=== PATIENT | male | born 1940 | race Caucasian/White ===

== ENCOUNTER 2019-08-08 14:35 | Inpatient (IN) ==
[2019-08-08] MEDS ORDERED: ONDANSETRON 4 MG/2 ML VIAL IV PRN (15:45)
[2019-08-08] MEDS ORDERED: ACETAMINOPHEN 325 MG TABLET PO PRN (15:45)
[2019-08-08] MEDS ORDERED: BENZONATATE 100 MG CAPSULE PO PRN (15:46)
[2019-08-08] MEDS ORDERED: methylPREDNISolone SOD SUC 40 MG/1 ML VIAL IV ONE (15:47)
[2019-08-08] MEDS ORDERED: ALBUTEROL/IPRATROPIUM 3 ML NEB RESP TX ONE (15:47)
[2019-08-08 16:46] LABS: Basophils % 0.2 % (0.0-0.8); Eosinophils % 0.1 % (0.00-10.9); Hematocrit 32.8 VOL% (42.0-52.0); Hemoglobin 10.6 GM/DL (14.0-18.0); Immature Granulocytes Absolute 0.37 #; Lymphocytes # 0.7 10*3/uL (1.4-4.0); Lymphocytes % 3.9 % (21.2-54.2); Mean Corpuscular HGB Conc 32.3 GM/DL (32-36); Mean Corpuscular Volume 94.5 FL (87-102); Monocytes % 5.1 % (1.7-12.7); Neutrophils % 88.7 % (38.7-73.9); Platelet Count 224 T/CUMM (130-400); Red Blood Count 3.47 MC/CUMM (3.8-5.5); Red Cell Distribution Width 14.1 % (9.3-17.3); White Blood Count 18.5 T/CUMM (4-12)
[2019-08-08 17:01] LABS: Calcium 8.7 MG/DL (8.5-10.1); Osmolality,Calculated 267.5 MOS/KG (273-304)
[2019-08-08 17:16] LABS: Troponin I < 0.015 NG/ML (0.00-0.045)
[2019-08-08] MEDS: cefTRIAXone 1,000 MG in SYRINGE 1 EACH IV SCH (17:20)
[2019-08-08 17:28] LABS: Band Neutrophils 2 % (0-10); Lymphocytes 5 % (20-55); Platelet Estimate Normal; Segmented Neutrophils 89 % (50-85); Total Cells Counted 100
[2019-08-08] MEDS: AZITHROMYCIN INJ 500 MG in SODIUM CHLORIDE 0.9% 250 ML IV SCH (17:29)
[2019-08-08 18:47] LABS: Troponin I < 0.015 NG/ML (0.00-0.045)
[2019-08-08] MEDS: ALBUTEROL/IPRATROPIUM 3 ML NEB RESP TX SCH (19:30)
[2019-08-08 19:35] LABS: Apearance,Urine CLEAR (Clear); Bacteria,Urine Many /HPF (Few); Bilirubin,Urine Negative (Negative); Blood, Urine Small mg/dL (Negative); Glucose,Urine (UA) Negative (Negative); Hyaline Casts,Urine 10 /LPF (0-3); Ketones,Urine Negative (Negative); Mucus,Urine Occasional /LPF (Occasional); Nitrite,Urine Negative (Negative); Protein,Urine Negative; RBC,Urine 4 /HPF (0-4); Squamous Epithelial Cell,Urine Occasional /HPF (0-10); Urine Color Yellow (Yellow); Urine Specific Gravity 1.014 (1.001-1.035); Urine Urobilinogen < 2.0 EU/DL (0.2-1.0); WBC,Urine 15 /HPF (0-6)
[2019-08-08] MEDS: carvediloL 6.25 MG TABLET PO SCH (20:40)
[2019-08-08 22:33] LABS: Troponin I < 0.015 NG/ML (0.00-0.045)
[2019-08-09] MEDS: ALBUTEROL/IPRATROPIUM 3 ML NEB RESP TX SCH ×7 (00:11→23:40)
[2019-08-09] MEDS: methylPREDNISolone SOD SUC 40 MG/1 ML VIAL IV SCH ×2 (05:29→16:41)
[2019-08-09 06:13] LABS: Basophils % 0.1 % (0.0-0.8); Hematocrit 31.9 VOL% (42.0-52.0); Hemoglobin 10.2 GM/DL (14.0-18.0); Immature Granulocytes % 1.3 %; Immature Granulocytes Absolute 0.17 #; Lymphocytes # 0.6 10*3/uL (1.4-4.0); Lymphocytes % 4.6 % (21.2-54.2); Mean Corpuscular Volume 93.3 FL (87-102); Mean Platelet Volume 10.7 FL (9.6-12.0); Monocytes % 5.1 % (1.7-12.7); Neutrophils % 88.9 % (38.7-73.9); Platelet Count 207 T/CUMM (130-400); Red Blood Count 3.42 MC/CUMM (3.8-5.5); Red Cell Distribution Width 13.9 % (9.3-17.3); White Blood Count 13.5 T/CUMM (4-12)
[2019-08-09 06:42] LABS: Calcium 8.8 MG/DL (8.5-10.1); Osmolality,Calculated 276.1 MOS/KG (273-304); Risk Ratio 4.38; Thyroid Stimulating Hormone 0.519 uIU/ml (0.358-3.74); VLDL CHOLESTEROL 17.6 MG/DL
[2019-08-09 06:53] LABS: Band Neutrophils 1 % (0-10); Lymphocytes 3 % (20-55); Platelet Estimate Normal; Polychromasia Slight; Segmented Neutrophils 95 % (50-85); Total Cells Counted 100
[2019-08-09] MEDS: DOCUSATE SODIUM 100 MG CAPSULE PO SCH ×2 (08:47→20:14)
[2019-08-09] MEDS: carvediloL 6.25 MG TABLET PO SCH ×2 (08:47→20:15)
[2019-08-09] MEDS: BUDESONIDE/FORMOTEROL 160-4.5 INHALER 6 GM INH SCH (08:47)
[2019-08-09] MEDS: PANTOPRAZOLE 40 MG TABLET PO SCH (08:47)
[2019-08-09] MEDS: SIMVASTATIN 10 MG TABLET PO SCH (08:47)
[2019-08-09] MEDS: EZETIMIBE 10 MG TABLET PO SCH (08:47)
[2019-08-09] MEDS: AZITHROMYCIN INJ 500 MG in SODIUM CHLORIDE 0.9% 250 ML IV SCH (16:40)
[2019-08-09] MEDS: cefTRIAXone 1,000 MG in SYRINGE 1 EACH IV SCH (16:41)
[2019-08-10] MEDS: ALBUTEROL/IPRATROPIUM 3 ML NEB RESP TX SCH ×6 (04:44→23:25)
[2019-08-10] MEDS: methylPREDNISolone SOD SUC 40 MG/1 ML VIAL IV SCH ×2 (04:53→23:35)
[2019-08-10 05:19] LABS: Basophils % 0.2 % (0.0-0.8); Eosinophils % 0.1 % (0.00-10.9); Hematocrit 31.8 VOL% (42.0-52.0); Hemoglobin 10.6 GM/DL (14.0-18.0); Immature Granulocytes % 2.9 %; Immature Granulocytes Absolute 0.56 #; Lymphocytes # 1.1 10*3/uL (1.4-4.0); Lymphocytes % 5.7 % (21.2-54.2); Mean Corpuscular HGB Conc 33.3 GM/DL (32-36); Mean Corpuscular Volume 91.4 FL (87-102); Neutrophils % 87.1 % (38.7-73.9); Platelet Count 259 T/CUMM (130-400); Red Blood Count 3.48 MC/CUMM (3.8-5.5); Red Cell Distribution Width 14.1 % (9.3-17.3); White Blood Count 19.2 T/CUMM (4-12)
[2019-08-10 05:44] LABS: Calcium 8.7 MG/DL (8.5-10.1); Osmolality,Calculated 283.8 MOS/KG (273-304)
[2019-08-10 05:56] LABS: Lymphocytes 3 % (20-55); Platelet Estimate Adequate; Segmented Neutrophils 95 % (50-85); Total Cells Counted 100
[2019-08-10] MEDS: DOCUSATE SODIUM 100 MG CAPSULE PO SCH ×2 (08:32→20:47)
[2019-08-10] MEDS: carvediloL 6.25 MG TABLET PO SCH ×2 (08:32→20:47)
[2019-08-10] MEDS: EZETIMIBE 10 MG TABLET PO SCH (08:32)
[2019-08-10] MEDS: SIMVASTATIN 10 MG TABLET PO SCH (08:33)
[2019-08-10] MEDS: PANTOPRAZOLE 40 MG TABLET PO SCH (08:33)
[2019-08-10] MEDS: BUDESONIDE/FORMOTEROL 160-4.5 INHALER 6 GM INH SCH (08:35)
[2019-08-10] MEDS: AZITHROMYCIN 250 MG TABLET PO SCH (08:40)
[2019-08-10] MEDS: cefTRIAXone 1,000 MG in SYRINGE 1 EACH IV SCH (17:08)
[2019-08-11] MEDS: ALBUTEROL/IPRATROPIUM 3 ML NEB RESP TX SCH ×2 (04:28→07:36)
[2019-08-11 04:47] LABS: Basophils # 0.1 10*3/uL (0.0-0.2); Basophils % 0.3 % (0.0-0.8); Hematocrit 33.6 VOL% (42.0-52.0); Hemoglobin 10.8 GM/DL (14.0-18.0); Immature Granulocytes % 3.1 %; Immature Granulocytes Absolute 0.47 #; Lymphocytes # 0.8 10*3/uL (1.4-4.0); Lymphocytes % 5.5 % (21.2-54.2); Mean Corpuscular HGB Conc 32.1 GM/DL (32-36); Mean Corpuscular Volume 92.6 FL (87-102); Mean Platelet Volume 10.6 FL (9.6-12.0); Monocytes % 2.6 % (1.7-12.7); Neutrophils % 88.5 % (38.7-73.9); Platelet Count 288 T/CUMM (130-400); Red Blood Count 3.63 MC/CUMM (3.8-5.5); Red Cell Distribution Width 14.1 % (9.3-17.3); White Blood Count 15.2 T/CUMM (4-12)
[2019-08-11 05:09] LABS: Calcium 8.5 MG/DL (8.5-10.1); Osmolality,Calculated 290.4 MOS/KG (273-304)
[2019-08-11 08:55] VITALS: BP 137/79
[2019-08-11] MEDS: BUDESONIDE/FORMOTEROL 160-4.5 INHALER 6 GM INH SCH (09:03)
[2019-08-11] MEDS: carvediloL 6.25 MG TABLET PO SCH (09:04)
[2019-08-11] MEDS: AZITHROMYCIN 250 MG TABLET PO SCH (09:04)
[2019-08-11] MEDS: methylPREDNISolone SOD SUC 40 MG/1 ML VIAL IV SCH (09:04)
[2019-08-11] MEDS: SIMVASTATIN 10 MG TABLET PO SCH (09:04)
[2019-08-11] MEDS: EZETIMIBE 10 MG TABLET PO SCH (09:04)
[2019-08-11] MEDS: PANTOPRAZOLE 40 MG TABLET PO SCH (09:04)
[2019-08-11] MEDS: DOCUSATE SODIUM 100 MG CAPSULE PO SCH (09:04)
[2019-08-11] MEDS: cefTRIAXone 1,000 MG in SYRINGE 1 EACH IV SCH (11:12)
== END 2019-08-11 11:58 | disposition home or self-care (01) | DRG 194 ==
LOC: N.2E → SUATTDRO 14:35 → SUPCPDRO 15:45
PROVIDERS: ADMIT Internal Medicine; ATTEND Internal Medicine Geriatric Medicine